=== PATIENT | female | born 1955 | race Caucasian/White ===

== ENCOUNTER 2018-05-17 16:25 | Outpatient (CLI) | payer OTHER ==
--- NOTE | 2018-05-18 08:39 | XRAY Report ---
Reason: BACK PAIN,LUMBAR,WITH RADICULOPATHY Procedure Date: 05/17/2018 Accession Number: [id number] / [id number] Procedure: XR - Lumbar Spine Complete CPT Code: FULL RESULT: EXAM: LUMBOSACRAL SPINE RADIOGRAPHY EXAM DATE: 05/17/2018 05:02 PM. CLINICAL HISTORY: Low back pain for 9 months with leg stiffness. COMPARISONS: No lumbar x-ray comparison. Abdomen x-ray 03/03/2014. CT abdomen and pelvis 03/03/2014. TECHNIQUE: 5 views. FINDINGS: Alignment: No scoliosis. Very mild anterolisthesis at L4-L5 appears increased. Very mild L2-L3 and minimal L3-L4 retrolisthesis is without ernestina change. Bones: Five ela-hbv-vxahdom lumbar vertebral bodies are present. Evidence of diffuse osteopenia, limiting some fine bony detail. No acute fractures or bone lesions. Mild anterior height loss of the L2 vertebral body and minimal height loss of the L1 vertebral body are without change. Disks: Djgi-ud-ukuajfgo L1-L2, mild L2-L3 and mild L3-L4 disk space narrowing are without significant change. Very mild multilevel vertebral body spurring. facets: L4-L5 and L5-S1 degenerative facet disease, increased. Sacroiliac Joints: Unremarkable. Soft Tissues: Aortic calcifications. The visualized bowel gas pattern is normal. IMPRESSION: 1. Osteopenia. 2. No definite acute abnormality. 3. Stable mild L2 and minimal L1 vertebral body height loss. 4. Degenerative disk disease, without significant change. 5. Very mild L4-L5 anterolisthesis, increased. 6. Very mild L2-L3 and minimal L3-L4 retrolisthesis, without significant change. 7. L4-L5 and L5-S1 degenerative facet disease, progressed. RADIA
== END 2018-05-17 16:26 | disposition home or self-care (01) ==
LOC: DI 16:25
PROVIDERS: ATTEND Physician Assistant Medical
DX: M51.16 Intervertebral disc disorders with radiculopathy, lumbar region (principal); M85.88 Other specified disorders of bone density and structure, other site
CPT/HCPCS: 72110

== ENCOUNTER 2018-08-20 16:10 | Outpatient (CLI) | payer OTHER ==
--- NOTE | 2018-08-21 10:51 | XRAY Report ---
Reason: HIP JOINT PAIN,LEFT Procedure Date: 08/20/2018 Accession Number: [id number] / [id number] Procedure: XR - Hip w/Pelvis 2-3V LT CPT Code: FULL RESULT: EXAM: LEFT HIP AND PELVIS RADIOGRAPHY EXAM DATE: 08/20/2018 04:21 PM. HISTORY: HIP JOINT PAIN,LEFT. COMPARISONS: None. TECHNIQUE: 1 view of the pelvis and 1 view of the hip. FINDINGS: Bones: Normal. No fracture or bone lesion. Joints: There is complete loss of joint space in the left hip joint medially. Moderate loss of hip joint space is also seen on the right medially. The pubis symphysis, and sacroiliac joints are preserved. Soft Tissues: Normal. No soft tissue swelling. IMPRESSION: Complete loss of joint space in left hip joint medially. RADIA
== END 2018-08-20 16:11 | disposition home or self-care (01) ==
LOC: DI 16:10
PROVIDERS: ATTEND Physician Assistant Medical
DX: M25.852 Other specified joint disorders, left hip (principal); M25.851 Other specified joint disorders, right hip

== ENCOUNTER 2018-09-12 11:15 | Outpatient (CLI) | payer OTHER ==
--- NOTE | 2018-09-12 20:57 | XRAY Report ---
Reason: TOBACCO DEPENDENCE, CONTINUOUS, PNEUMONIA Procedure Date: 09/11/2018 Accession Number: [id number] / [id number] Procedure: XR - Chest 2 View X-Ray CPT Code: 12062 FULL RESULT: EXAM: CHEST RADIOGRAPHY EXAM DATE: 09/12/2018 11:26 AM. CLINICAL HISTORY: TOBACCO DEPENDENCE, CONTINUOUS, PNEUMONIA. COMPARISON: XR CHEST PA AND LAT 05/21/2011 1:22 PM. TECHNIQUE: 2 views. FINDINGS: Lungs/Pleura: There is nodular and consolidative opacity within the right middle lobe. There is no evidence of significant pleural effusion. No pneumothorax. Mediastinum: Heart size is within normal limits. There is mild thoracic aortic tortuosity. Other: None. IMPRESSION: 1. There is nodular and consolidative opacity within the right middle lobe. This is suspicious for pneumonia. Interval follow-up film posttreatment recommended to demonstrate resolution of this process and to exclude underlying pathology. 2. There is no evidence of pneumothorax. RADIA
== END 2018-09-12 11:16 | disposition home or self-care (01) ==
LOC: DI 11:15
PROVIDERS: ATTEND Registered Nurse
DX: J11.00 Influenza due to unidentified influenza virus with unspecified type of pneumonia (principal); F17.200 Nicotine dependence, unspecified, uncomplicated
CPT/HCPCS: 71046

== ENCOUNTER 2018-09-14 10:39 | Inpatient (IN) | payer MEDICARE, OTHER ==
[2018-09-14] MEDS ORDERED: predniSONE 20 MG TABLET PO STA (12:18)
[2018-09-14] MEDS ORDERED: levoFLOXacin 250 MG TABLET PO STA (12:18)
[2018-09-14] MEDS ORDERED: ALBUTEROL NEB 2.5 MG/3 ML INH STA (12:18)
--- NOTE | 2018-09-14 12:22 | ED Physician Documentation ---
PD HPI DYSPNEA - Stated complaint Stated Complaint: DIFF BREATHING/WEAKNESS/COUGH - Chief complaint Chief Complaint: Resp - History obtained from History obtained from: Patient - History of Present Illness Timing - onset: Other (This is a long-standing 63-year-old smoker with no formal diagnosis of COPD etc. who saw her physician on Monday for a productive cough without other URI symptoms and was diagnosed with a right-sided pneumonia. She was put on doxycycline. 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: Yes Smoking Status: Current every day smoker Does the pt drink ETOH?: Yes Does the pt have substance abuse?: No - Immunizations Immunizations: TDAP >10years/unknown - POLST Patient has POLST: No PD ED PE NORMAL - Vitals Vital signs reviewed: Yes - General General: Alert and oriented X 3, No acute distress - HEENT HEENT: PERRL, EOMI - Neck Neck: Supple, no meningeal sign, No bony TTP - Cardiac Cardiac: RRR, No murmur - Respiratory Respiratory: No respiratory distress, Other (Very rhonchorous throughout especially on the right) - Abdomen Abdomen: Soft, Non tender - Extremities Extremities: No edema, No calf tenderness / cord - Neuro Neuro: Alert and oriented X 3, Normal speech Results - Vitals Vitals: Vital Signs - 24 hr 09/14/18 09/14/18 10:44 12:26 Temperature 36.1 C L Heart Rate 81 68 Respiratory 20 20 Rate Blood Pressure 131/60 H O2 Saturation 93 Oxygen O2 Source Room air PD MEDICAL DECISION MAKING - ED course ED course: This is a 63-year-old smoker with some physical exam findings concerning for COPD and a chest x-ray showing a right-sided pneumonia which is incompletely tr eated. Her vital signs are unremarkable. We will change her over to Levaquin and add steroids. However prior to discharge she became hypoxic to the mid-80s and required about 3lpm of O2 and I spoke with Dr Willis for admit at 1249pm Departure - Departure Disposition: 66 [facility] DC/Xfer Clinical Impression: Hypoxemia Pneumonia Qualifiers: Pneumonia type: due to unspecified organism Laterality: right Lung location: unspecified part of lung Qualified Code(s): J18.9 - Pneumonia, unspecified organism Condition: Serious Record reviewed to determine appropriate education?: Yes Instructions: ED Pneumonia Adult Prescriptions: Levofloxacin [Levaquin] 750 mg PO DAILY #7 tablet predniSONE [Deltasone] 20 mg PO [id number] #21 tab Comments: FOLLOWUP WITH YOUR DOCTOR MONDAY FOR RECHECK. RETURN IF WORSE.
[2018-09-14] MEDS ORDERED: IPRATROPIUM/ALBUTEROL 3 ML NEB INH STA (12:44)
[2018-09-14] MEDS ORDERED: ZOLPIDEM 5 MG TABLET PO PRN (13:02)
[2018-09-14] MEDS ORDERED: ONDANSETRON 4 MG/2 ML VIAL IVP PRN (13:02)
[2018-09-14] MEDS ORDERED: PROCHLORPERAZINE 10 MG/2 ML VIAL IVP PRN (13:02)
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
[2018-09-14 13:20] LABS: BASOPHILS # (AUTO) 0.1 10^3/uL (0.0-0.1); BASOPHILS % (AUTO) 0.7 %; EOSINOPHILS # (AUTO) 0.1 10^3/uL (0.0-0.7); EOSINOPHILS % (AUTO) 1.3 %; HGB - HEMOGLOBIN 13.9 g/dL (12.0-16.0); LYMPHOCYTES # (AUTO) 2.6 10^3/uL (1.5-3.5); LYMPHOCYTES % (AUTO) 26.5 %; MEAN CORPUSCULAR HGB CONC 34.5 g/dL (32.0-36.0); MEAN CORPUSCULAR VOLUME 92.7 fL (81.0-99.0); MEAN PLATELET VOLUME 7.9 fL (7.9-10.8); MONOCYTES # (AUTO) 1.2 10^3/uL (0.0-1.0); NEUTROPHILS # (AUTO) 5.8 10^3/uL (1.5-6.6); NEUTROPHILS % (AUTO) 59.5 %; PLT - PLATELET COUNT 269 10^3/uL (130-450); RED BLOOD COUNT 4.35 10^6/uL (4.20-5.40); RED CELL DISTRIBUTION WIDTH 13.3 % (12.0-15.0); WHITE BLOOD COUNT 9.8 x10^3/uL (4.8-10.8)
[2018-09-14] MEDS ORDERED: IOVERSOL 320 100 ML VIAL IVP ONE ×2 (13:26→14:07)
[2018-09-14 13:34] LABS: ALBUMIN 3.4 g/dL (3.2-5.5); ALBUMIN/GLOBULIN RATIO 0.8 (1.0-2.2); BILIRUBIN,TOTAL 0.6 mg/dL (0.2-1.0); CALCIUM 8.8 mg/dL (8.5-10.3); CREATININE 0.8 mg/dL (0.4-1.0); TOTAL PROTEIN 7.9 g/dL (6.7-8.2)
[2018-09-14 13:36] LABS: INR 1.4 (0.8-1.2); PT - PROTHROMBIN TIME 15.4 secs (9.9-12.6)
[2018-09-14] MEDS ORDERED: POTASSIUM CHLORIDE 20 MEQ TABLET PO SCH (13:55)
[2018-09-14] MEDS ORDERED: SODIUM CHLORIDE 0.9% 1,000 ML IV SCH (14:00)
--- NOTE | 2018-09-14 14:40 | CT Report ---
Reason: Acute respiratory failure with hypoxia Procedure Date: 09/14/2018 Accession Number: [id number] / [id number] Procedure: CT - Chest Angio (PE) CPT Code: FULL RESULT: EXAM: CT ANGIOGRAM CHEST EXAM DATE: 09/14/2018 02:05 PM. CLINICAL HISTORY: Acute respiratory failure with hypoxia. COMPARISON: CHEST 2 VIEW 09/12/2018 11:26 AM. TECHNIQUE: Routine helical imaging was performed through the chest in the pulmonary arterial phase. IV Contrast: 80 ML OPTIRAY 320. Reconstructions: Coronal 3-D MIP reconstructions.Sagittal and coronal. In accordance with CT protocol optimization, one or more of the following dose reduction techniques were utilized for this exam: automated exposure control, adjustment of mA and/or KV based on patient size, or use of iterative reconstructive technique. FINDINGS: Pulmonary Arteries: Main pulmonary segment is normal in caliber. Diagnostic quality: Adequate through the segmental arteries. No evidence for acute or chronic pulmonary emboli. RV/LV is within normal limits. There is no interventricular septal bowing. There is no reflux of contrast material in the IVC. Lungs/Pleura: There is peripheral paraseptal emphysema bilaterally greatest in the apices and sparing the anterior inferior lungs. There is multifocal peripheral patchy and confluent airspace consolidation, in association with an element of volume loss in the inferior aspects of the right upper, middle and lower lobes. There is asymmetric bronchial thickening with small amounts of intrabronchial material noted to be supplying bronchi. No effusion or extra-ventilatory air. Mediastinum: Normal. No cardiac enlargement or adenopathy. Mild asymmetric low density right hilar lymph nodes noted not significantly enlarged. Thoracic Aorta: Unremarkable. Upper Abdomen: Unremarkable. Other: None. IMPRESSION: 1. No evidence of acute pulmonary embolism. 2. Multifocal right lung airspace opacity as described favoring sequela of aspiration event. Correlate with an appropriate clinical history. If no supporting history, multifocal infiltrate would be favored. 3. Paraseptal emphysema. RADIA
[2018-09-14] MEDS: NS W/20 MEQ KCL 1,000 ML IV SCH ×2 (14:57→23:55)
[2018-09-14] MEDS: AZITHROMYCIN INJ 500 MG in SODIUM CHLORIDE 0.9% 250 ML IV SCH (14:58)
[2018-09-14] MEDS: IPRATROPIUM/ALBUTEROL 3 ML NEB INH SCH ×2 (15:40→23:27)
[2018-09-14] MEDS: cefTRIAXone 2 GM in SODIUM CHLORIDE 0.9% MINIBAG 100 ML IV SCH (16:49)
[2018-09-14] MEDS: SACCHAROMYCES BOULARDII 250 MG CAPSULE PO SCH (17:33)
[2018-09-14] MEDS: SODIUM CHLORIDE FLUSH 0.9% 10 ML SYRINGE IVP SCH ×2 (17:34→23:55)
[2018-09-14] MEDS: methylPREDNISolone SUCCINATE 40 MG/ML VIAL IVP SCH ×2 (17:36→23:55)
[2018-09-14] MEDS: FAMOTIDINE 20 MG TABLET PO SCH (20:03)
[2018-09-14] MEDS: IBUPROFEN 600 MG TABLET PO PRN (20:43)
[2018-09-14] MEDS: IPRATROPIUM/ALBUTEROL 3 ML NEB INH PRN (23:23)
[2018-09-15 05:32] LABS: BASOPHILS % (AUTO) 0.1 %; HGB - HEMOGLOBIN 11.9 g/dL (12.0-16.0); LYMPHOCYTES # (AUTO) 0.9 10^3/uL (1.5-3.5); LYMPHOCYTES % (AUTO) 11.5 %; MEAN CORPUSCULAR HEMOGLOBIN 32.1 pg (27.0-31.0); MEAN CORPUSCULAR VOLUME 94.5 fL (81.0-99.0); MEAN PLATELET VOLUME 8.1 fL (7.9-10.8); MONOCYTES # (AUTO) 0.2 10^3/uL (0.0-1.0); MONOCYTES % (AUTO) 2.8 %; NEUTROPHILS # (AUTO) 6.4 10^3/uL (1.5-6.6); NEUTROPHILS % (AUTO) 85.6 %; PLT - PLATELET COUNT 237 10^3/uL (130-450); RED BLOOD COUNT 3.71 10^6/uL (4.20-5.40); RED CELL DISTRIBUTION WIDTH 13.3 % (12.0-15.0); WHITE BLOOD COUNT 7.5 x10^3/uL (4.8-10.8)
[2018-09-15] MEDS: methylPREDNISolone SUCCINATE 40 MG/ML VIAL IVP SCH ×3 (05:41→19:00)
[2018-09-15] MEDS: SODIUM CHLORIDE FLUSH 0.9% 10 ML SYRINGE IVP PRN (05:41)
[2018-09-15 05:48] LABS: ALBUMIN 2.7 g/dL (3.2-5.5); ALBUMIN/GLOBULIN RATIO 0.7 (1.0-2.2); BILIRUBIN,TOTAL 0.3 mg/dL (0.2-1.0); CALCIUM 8.3 mg/dL (8.5-10.3); CREATININE 0.5 mg/dL (0.4-1.0); MAGNESIUM 2.4 mg/dL (1.7-2.8); PHOSPHORUS 4.4 mg/dL (2.5-4.6); TOTAL PROTEIN 6.5 g/dL (6.7-8.2)
[2018-09-15] MEDS: IPRATROPIUM/ALBUTEROL 3 ML NEB INH SCH ×2 (05:53→11:54)
[2018-09-15 06:14] LABS: INR 1.4 (0.8-1.2); PT - PROTHROMBIN TIME 16.2 secs (9.9-12.6)
--- NOTE | 2018-09-15 07:37 | PROVIDER PROGRESS NOTE ---
Assessment/Plan - Problem List (1) Acute respiratory failure with hypoxia Assessment/Plan: Down to 3L O2 requirement no O2 at baseline Improving Still coughing Continue IV abx, nebs and steroids Wean O2 Transfer to Med surg (2) Multifocal pneumonia Conclusion/Plan: Improving but still requiring 3L of O2 with coughing Continue vancomycin and zosyn day 2 Duo nebs IV steroids Supplemental oxygen Repeat chest x-ray tomorrow (3) COPD exacerbation Conclusion/Plan: Patient is a longtime smoker and on her CT angiography of the thorax the patient appears to have emphysema. The patient also has wheezing on examination. Shane arauz appears to have COPD exacerbation secondary to multifocal pneumonia. Improving slowly Plan: Continue Duo nebs prn IV Solu-Medrol every 6 hours Supplemental oxygen (4) Tobacco abuse Conclusion/Plan: Patient counselled and offered nicotine patch (5) Hypokalemia Conclusion/Plan: Resolved - Current Meds Current Meds: Current Medications Generic Name Dose Route Start Last Admin Trade Name Freq PRN Reason Stop Dose Admin Albuterol/Ipratropium 3 ml 09/14/18 13:02 09/14/18 23:23 Duoneb INH 3 ml RTQID PRN Administration Wheezing Albuterol/Ipratropium 3 ml 09/14/18 15:00 09/15/18 05:53 Duoneb INH 09/15/18 14:59 3 ml RTQID JACQUELINE Administration Famotidine 20 mg 09/14/18 21:00 09/14/18 20:03 Pepcid PO 20 mg BID JACQUELINE Administration Azithromycin 500 mg/ Sodium 250 mls @ 250 mls/hr 09/14/18 14:00 09/14/18 16:00 Chloride IV Infused Q24H JACQUELINE Infusion Ceftriaxone Sodium 2 gm/ 100 mls @ 200 mls/hr 09/14/18 16:00 09/14/18 17:20 Sodium Chloride IV Infused Q24H JACQUELINE Infusion Potassium Chloride/Sodium Chloride 1,000 mls @ 125 mls/hr 09/14/18 15:00 09/15/18 07:00 Normal Saline 0.9% W/20 Meq Kcl IV 125 mls/hr .Q8H JACQUELINE Infusion Ibuprofen 600 mg 09/14/18 13:02 09/14/18 20:43 Motrin PO 600 mg Q6HR PRN Administration Pain 1 to 4 Methylprednisolone 40 mg 09/14/18 18:00 09/15/18 05:41 Solu-Medrol (40mg Vial) IVP 40 mg Q6HR JACQUELINE Administration Saccharomyces Boulardii 250 mg 09/14/18 17:00 09/14/18 17:33 Florastor PO 250 mg BIDWM JACQUELINE Administration Sodium Chloride 10 ml 09/14/18 13:02 09/15/18 05:41 Normal Saline Flush 0.9% IVP 10 ml PRN PRN Administration NEEDED PER PROVIDER ORDERS Sodium Chloride 10 ml 09/14/18 17:00 09/14/18 23:55 Normal Saline Flush 0.9% IVP 10 ml 0100,0900,1700 JACQUELINE Administration - Lab Result Lab results reviewed: Yes Fish Bone Diagrams: 09/15/18 05:18 09/15/18 05:18 - Diagnostic Imaging Results Diagnostic Imaging Results: Final report reviewed - Additional Planning Condition/Complexity: Guarded My Orders: My Active Orders 09/14/18 13:02 Activity Orders [RC] Routine IO [RC] IOSHIFT Initiate Bowel Care Protocol [RC] .protocol Initiate Flu Vaccine Screening [RC] ONCE Initiate Line Care Protocol [RC] QSHIFT Initiate Personal Care Protoco [RC] .protocol Initiate Pneumonia Vaccine Scr [RC] ONCE Oxygen Therapy [RC] Routine Acetaminophen [Tylenol] 650 mg PO Q4HR PRN Ibuprofen [Motrin] 600 mg PO Q6HR PRN Ipratropium/Albuterol [Duoneb] 3 ml INH RTQID PRN Ondansetron Inj [Zofran Inj] 4 mg IVP Q6HR PRN Prochlorperazine Inj [Compazine Inj] 10 mg IVP Q6HR PRN Sodium Chloride Flush 0.9% [Normal Saline Flush 0.9%] 10 ml IVP PRN PRN Zolpidem [Ambien] 5 mg PO QPM PRN Code Status [OTHERS] Routine Condition of Patient [OTHERS] Routine DVT Prophylaxis [OTHERS] Routine 09/14/18 13:14 Daily Weight [RC] 0600 IO [RC] Q1HR Initiate ICU Electrolyte Prot. [RC] .protocol Vital Signs [RC] Q1HR Code Status [OTHERS] Routine 09/14/18 13:15 Telemetry- [RC] Routine 09/14/18 14:00 Azithromycin Inj [Zithromax Inj] 500 mg Sodium Chloride 0.9% [Normal Saline 0.9%] 250 ml IV Q24H 09/14/18 15:00 Ipratropium/Albuterol [Duoneb] 3 ml INH RTQID Ns W/20 Meq KCl [Normal Saline 0.9% W/20 Meq KCl] 1,000 ml IV 125 mls/hr 09/14/18 15:46 RT [Nebulizer/MDI Tx.] [RC] .qid&prn 09/14/18 16:00 cefTRIAXone [Rocephin] 2 gm Sodium Chloride 0.9% Minibag [Normal Saline 0.9% Minibag] 100 ml IV Q24H 09/14/18 17:00 Saccharomyces Boulardii [Florastor] 250 mg PO BIDWM Sodium Chloride Flush 0.9% [Normal Saline Flush 0.9%] 10 ml IVP 0100,0900,1700 09/14/18 18:00 methylPREDNISolone SUCCINATE [SOLU-Medrol (40MG VIAL)] 40 mg IVP Q6HR 09/14/18 21:00 Famotidine [Pepcid] 20 mg PO BID 09/14/18 Dinner Regular Diet [DIET] 09/15/18 08:00 predniSONE [Deltasone] 40 mg PO DAILYWM 09/15/18 09:00 Enoxaparin [Lovenox] 40 mg SUBQ DAILY Polyethylene Glycol 3350 [Miralax] 17 gm PO DAILY 09/16/18 05:00 CBC - COMP BLD CT W/AUTO DIFF [HEME] DAILYLAB COMPREHENSIVE METABOLIC PANEL [CHEM] DAILYLAB MAGNESIUM [CHEM] DAILYLAB PHOSPHORUS [CHEM] DAILYLAB 09/17/18 05:00 CBC - COMP BLD CT W/AUTO DIFF [HEME] DAILYLAB COMPREHENSIVE METABOLIC PANEL [CHEM] DAILYLAB MAGNESIUM [CHEM] DAILYLAB PHOSPHORUS [CHEM] DAILYLAB Plan Discussed with:: Patient Time Spent: 31-60 minutes Subjective - Subjective Patient Reports: Feeling Better, Cough (Slightly better), Shortness of Breath (I mproving), Other (No fevers or chills) Nursing Reports: No Complaints Objective Vital Signs: Vital Signs - 24 hr 09/14/18 09/14/18 09/14/18 10:44 12:26 15:00 Temperature 36.1 C L Heart Rate 81 68 Heart Rate [ 78 Monitoring electrodes] Respiratory 20 20 18 Rate Blood Pressure 131/60 H Blood Pressure 106/72 [Right Brachial artery] O2 Saturation 93 99 09/14/18 09/14/18 09/14/18 15:47 16:00 19:00 Temperature Heart Rate 82 Heart Rate [ 84 73 Monitoring electrodes] Respiratory 20 12 18 Rate Blood Pressure Blood Pressure 116/64 110/61 [Right Brachial artery] O2 Saturation 93 96 09/14/18 09/14/18 09/14/18 19:29 20:00 21:00 Temperature 36.5 C Heart Rate Heart Rate [ 87 71 77 Monitoring electrodes] Respiratory 23 18 25 H Rate Blood Pressure Blood Pressure 110/61 104/67 104/59 L [Right Brachial artery] O2 Saturation 93 96 94 09/14/18 09/14/18 09/14/18 22:00 23:00 23:23 Temperature 36.8 C Heart Rate 64 Heart Rate [ 69 64 Monitoring electrodes] Respiratory 19 22 16 Rate Blood Pressure Blood Pressure 97/56 L 101/56 L [Right Brachial artery] O2 Saturation 95 95 09/14/18 09/15/18 09/15/18 23:31 00:01 01:00 Temperature Heart Rate Heart Rate [ 77 77 Monitoring electrodes] Respiratory 20 22 Rate Blood Pressure Blood Pressure 94/54 L 94/50 L [Right Brachial artery] O2 Saturation 100 92 93 09/15/18 09/15/18 09/15/18 02:00 03:00 04:00 Temperature Heart Rate Heart Rate [ 68 72 57 L Monitoring electrodes] Respiratory 24 23 24 Rate Blood Pressure Blood Pressure 87/53 L 96/55 L 92/53 L [Right Brachial artery] O2 Saturation 93 96 94 09/15/18 09/15/18 09/15/18 05:00 05:54 06:00 Temperature 36.6 C Heart Rate 50 L Heart Rate [ 51 L 54 L Monitoring electrodes] Respiratory 23 14 19 Rate Blood Pressure Blood Pressure 97/54 L 97/50 L [Right Brachial artery] O2 Saturation 97 98 09/15/18 07:00 Temperature Heart Rate Heart Rate [ 59 L Monitoring electrodes] Respiratory 23 Rate Blood Pressure Blood Pressure 109/55 L [Right Brachial artery] O2 Saturation 94 Oxygen O2 Source Nasal cannula Oxygen Flow Rate 2 I&O (Last 24 Hrs): Intake and Output Totals x24h 09/13/18 09/14/1818 23:59 23:59 23:59 Intake Total 1790.00 1385.417 Output Total 700 200 Balance 1090.00 1185.417 General: Alert, Oriented x3, Cooperative, Mild distress (Respiratory) HEENT: Atraumatic, PERRLA, EOMI, Mucous membr. moist/pink Neck: Supple, No JVD, No thyromegaly, +2 carotid pulse wo bruit, No LAD Lymphatic: no adenopathy Neuro: Alert, Non Focal, CN 2-12 Grossly Intact, Oriented Times 3 Cardiovascular: Regular rate, Normal S1, Normal S2, No murmurs Respiratory: Chest non-tender, Wheezes (Bilateral, expiratory), Rhonchi (Right lung throughout but worse in the lower lung) Abdomen: Normal bowel sounds, Soft, No tenderness, No hepatospenomegaly Extremities: No clubbing, No cyanosis, No edema, Normal pulses Skin: No rashes, No breakdown - Results Results: Laboratory Results WBC 7.5 x10^3/uL (4.8-10.8) 09/15/18 05:18 RBC 3.71 10^6/uL (4.20-5.40) L 09/15/18 05:18 Hgb 11.9 g/dL (12.0-16.0) L 09/15/18 05:18 Hct 35.1 % (37.0-47.0) L 09/15/18 05:18 MCV 94.5 fL (81.0-99.0) 09/15/18 05:18 MCH 32.1 pg (27.0-31.0) H 09/15/18 05:18 MCHC 34.0 g/dL (32.0-36.0) 09/15/18 05:18 RDW 13.3 % (12.0-15.0) 09/15/18 05:18 Plt Count 237 10^3/uL (130-450) 09/15/18 05:18 MPV 8.1 fL (7.9-10.8) 09/15/18 05:18 Neut # (Auto) 6.4 10^3/uL (1.5-6.6) 09/15/18 05:18 Lymph # (Auto) 0.9 10^3/uL (1.5-3.5) L 09/15/18 05:18 [place] # (Auto) 0.2 10^3/uL (0.0-1.0) 09/15/18 05:18 Eos # (Auto) 0.0 10^3/uL (0.0-0.7) 09/15/18 05:18 Baso # (Auto) 0.0 10^3/uL (0.0-0.1) 09/15/18 05:18 Absolute Nucleated RBC 0.00 x10^3/uL 09/15/18 05:18 Nucleated RBC % 0.0 /100WBC 09/15/18 05:18 PT 16.2 secs (9.9-12.6) H 09/15/18 05:18 INR 1.4 (0.8-1.2) H 09/15/18 05:18 D-Dimer 506.7 ng/mL (200.0-255.0) H 09/14/18 12:55 Sodium 138 mmol/L (135-145) 09/15/18 05:18 Potassium 4.6 mmol/L (3.5-5.0) 09/15/18 05:18 Chloride 108 mmol/L (101-111) 09/15/18 05:18 Carbon Dioxide 23 mmol/L (21-32) 09/15/18 05:18 Anion Gap 7.0 (6-13) 09/15/18 05:18 BUN 18 mg/dL (6-20) 09/15/18 05:18 Creatinine 0.5 mg/dL (0.4-1.0) 09/15/18 05:18 Estimated GFR (MDRD) 124 (>89) 09/15/18 05:18 Glucose 188 mg/dL (70-100) H 09/15/18 05:18 Lactic Acid 1.0 mmol/L (0.5-2.2) 09/14/18 13:11 Calcium 8.3 mg/dL (8.5-10.3) L 09/15/18 05:18 Phosphorus 4.4 mg/dL (2.5-4.6) 09/15/18 05:18 Magnesium 2.4 mg/dL (1.7-2.8) 09/15/18 05:18 Total Bilirubin 0.3 mg/dL (0.2-1.0) 09/15/18 05:18 AST 15 IU/L (10-42) 09/15/18 05:18 ALT 31 IU/L (10-60) 09/15/18 05:18 Alkaline Phosphatase 74 IU/L (42-121) 09/15/18 05:18 Troponin I < 0.04 ng/mL (<0.49) 09/15/18 00:59 Total Protein 6.5 g/dL (6.7-8.2) L 09/15/18 05:18 Albumin 2.7 g/dL (3.2-5.5) L 09/15/18 05:18 Globulin 3.8 g/dL (2.1-4.2) 09/15/18 05:18 Albumin/Globulin Ratio 0.7 (1.0-2.2) L 09/15/18 05:18 Lipase 23 U/L (22-51) 09/14/18 13:11 Influenza A (Rapid) Negative (Negative) 09/14/18 16:00 Influenza B (Rapid) Negative (Negative) 09/14/18 16:00 - Procedures Procedures: Procedures EXCISION OF ASCENDING COLON, ENDO, DIAGN (06/02/16) ABX Reporting Has patient been on IV antibiotics over the past 48 hours?: No Current Medications - Current Medications Current Medications: Active Medications Generic Name Dose Route Start Last Admin Trade Name Freq PRN Reason Stop Dose Admin Acetaminophen 650 mg 09/14/18 13:02 Tylenol PO Q4HR PRN Pain 1 to 4 Albuterol/Ipratropium 3 ml 09/14/18 13:02 09/14/18 23:23 Duoneb INH 3 ml RTQID PRN Administration Wheezing Albuterol/Ipratropium 3 ml 09/14/18 15:00 09/15/18 05:53 Duoneb INH 09/15/18 14:59 3 ml RTQID JACQUELINE Administration Enoxaparin Sodium 40 mg 09/15/18 09:00 Lovenox SUBQ DAILY JACQUELINE Famotidine 20 mg 09/14/18 21:00 09/14/18 20:03 Pepcid PO 20 mg BID JACQUELINE Administration Azithromycin 500 mg/ Sodium 250 mls @ 250 mls/hr 09/14/18 14:00 09/14/18 16:00 Chloride IV Infused Q24H JACQUELINE Infusion Ceftriaxone Sodium 2 gm/ 100 mls @ 200 mls/hr 09/14/18 16:00 09/14/18 17:20 Sodium Chloride IV Infused Q24H JACQUELINE Infusion Potassium Chloride/Sodium Chloride 1,000 mls @ 125 mls/hr 09/14/18 15:00 09/15/18 07:00 Normal Saline 0.9% W/20 Meq Kcl IV 125 mls/hr .Q8H JACQUELINE Infusion Ibuprofen 600 mg 09/14/18 13:02 09/14/18 20:43 Motrin PO 600 mg Q6HR PRN Administration Pain 1 to 4 Methylprednisolone 40 mg 09/14/18 18:00 09/15/18 05:41 Solu-Medrol (40mg Vial) IVP 40 mg Q6HR JACQUELINE Administration Ondansetron HCl 4 mg 09/14/18 13:02 Zofran Inj IVP Q6HR PRN Nausea / Vomiting Polyethylene Glycol 17 gm 09/15/18 09:00 Miralax PO DAILY JACQUELINE Prednisone 40 mg 09/15/18 08:00 Deltasone PO DAILYWM JACQUELINE Prochlorperazine Edisylate 10 mg 09/14/18 13:02 Compazine Inj IVP Q6HR PRN Nausea / Vomiting Saccharomyces Boulardii 250 mg 09/14/18 17:00 09/14/18 17:33 Florastor PO 250 mg BIDWM JACQUELINE Administration Sodium Chloride 10 ml 09/14/18 13:02 09/15/18 05:41 Normal Saline Flush 0.9% IVP 10 ml PRN PRN Administration NEEDED PER PROVIDER ORDERS Sodium Chloride 10 ml 09/14/18 17:00 09/14/18 23:55 Normal Saline Flush 0.9% IVP 10 ml 0100,0900,1700 JACQUELINE Administration Zolpidem Tartrate 5 mg 09/14/18 13:02 Ambien PO QPM PRN Insomnia Albuterol Sulfate [Proair Hfa Inhaler] 2 puffs INH Q4H PRN 09/14/18 Meloxicam 15 mg PO DAILY PRN 09/14/18
[2018-09-15] MEDS ORDERED: predniSONE 20 MG TABLET PO SCH (08:00)
[2018-09-15] MEDS: NS W/20 MEQ KCL 1,000 ML IV SCH ×3 (08:02→19:01)
[2018-09-15] MEDS: SODIUM CHLORIDE FLUSH 0.9% 10 ML SYRINGE IVP SCH ×2 (08:02→19:26)
[2018-09-15] MEDS: FAMOTIDINE 20 MG TABLET PO SCH ×2 (09:30→20:18)
[2018-09-15] MEDS: SACCHAROMYCES BOULARDII 250 MG CAPSULE PO SCH ×2 (09:30→19:01)
[2018-09-15] MEDS: POLYETHYLENE GLYCOL 3350 17 GM PACKET PO SCH (09:32)
[2018-09-15] MEDS: ENOXAPARIN 40 MG/0.4 ML SYRINGE SUBQ SCH (09:32)
[2018-09-15] MEDS: IBUPROFEN 600 MG TABLET PO PRN (12:16)
[2018-09-15] MEDS: AZITHROMYCIN INJ 500 MG in SODIUM CHLORIDE 0.9% 250 ML IV SCH (14:33)
[2018-09-15] MEDS: IPRATROPIUM/ALBUTEROL 3 ML NEB INH PRN (15:28)
[2018-09-15] MEDS ORDERED: SODIUM CHLORIDE 0.9% 1,000 ML IV ONE (15:57)
[2018-09-15] MEDS: cefTRIAXone 2 GM in SODIUM CHLORIDE 0.9% MINIBAG 100 ML IV SCH (17:34)
[2018-09-16] MEDS: IPRATROPIUM/ALBUTEROL 3 ML NEB INH PRN ×2 (00:54→18:00)
[2018-09-16] MEDS: methylPREDNISolone SUCCINATE 40 MG/ML VIAL IVP SCH ×4 (01:14→18:32)
[2018-09-16] MEDS: NS W/20 MEQ KCL 1,000 ML IV SCH (02:58)
[2018-09-16] MEDS: IBUPROFEN 600 MG TABLET PO PRN (03:00)
[2018-09-16] MEDS: SODIUM CHLORIDE FLUSH 0.9% 10 ML SYRINGE IVP SCH ×3 (03:28→18:32)
[2018-09-16 06:16] LABS: BASOPHILS % (AUTO) 0.2 %; HGB - HEMOGLOBIN 11.4 g/dL (12.0-16.0); LYMPHOCYTES # (AUTO) 1.5 10^3/uL (1.5-3.5); LYMPHOCYTES % (AUTO) 7.7 %; MEAN CORPUSCULAR HEMOGLOBIN 31.3 pg (27.0-31.0); MEAN CORPUSCULAR HGB CONC 32.8 g/dL (32.0-36.0); MEAN CORPUSCULAR VOLUME 95.6 fL (81.0-99.0); MONOCYTES # (AUTO) 0.6 10^3/uL (0.0-1.0); MONOCYTES % (AUTO) 3.1 %; PLT - PLATELET COUNT 256 10^3/uL (130-450); RED BLOOD COUNT 3.64 10^6/uL (4.20-5.40); RED CELL DISTRIBUTION WIDTH 13.5 % (12.0-15.0); WHITE BLOOD COUNT 19.1 x10^3/uL (4.8-10.8)
[2018-09-16 06:29] LABS: ALBUMIN 2.7 g/dL (3.2-5.5); ALBUMIN/GLOBULIN RATIO 0.8 (1.0-2.2); BILIRUBIN,TOTAL 0.2 mg/dL (0.2-1.0); CALCIUM 8.5 mg/dL (8.5-10.3); CREATININE 0.6 mg/dL (0.4-1.0); MAGNESIUM 2.2 mg/dL (1.7-2.8); PHOSPHORUS 3.3 mg/dL (2.5-4.6); TOTAL PROTEIN 6.1 g/dL (6.7-8.2)
[2018-09-16] MEDS: BENZONATATE 100 MG CAPSULE PO PRN ×2 (09:27→19:44)
[2018-09-16] MEDS: SACCHAROMYCES BOULARDII 250 MG CAPSULE PO SCH ×2 (09:27→17:17)
[2018-09-16] MEDS: guaiFENesin/CODEINE 5 ML UDC PO PRN ×3 (09:27→22:00)
[2018-09-16] MEDS: ENOXAPARIN 40 MG/0.4 ML SYRINGE SUBQ SCH (09:27)
[2018-09-16] MEDS: FAMOTIDINE 20 MG TABLET PO SCH ×2 (09:27→20:20)
[2018-09-16] MEDS: POLYETHYLENE GLYCOL 3350 17 GM PACKET PO SCH (09:28)
--- NOTE | 2018-09-16 09:56 | XRAY Report ---
Reason: Multifocal pneumonia Procedure Date: 09/16/2018 Accession Number: [id number] / [id number] Procedure: XR - Chest 2 View X-Ray CPT Code: 45550 FULL RESULT: EXAM: CHEST RADIOGRAPHY EXAM DATE: 09/16/2018 08:23 AM. CLINICAL HISTORY: Multifocal pneumonia. COMPARISON: CHEST 2 VIEW 09/12/2018 11:26 AM CHEST ANGIO 09/14/2018 1:41 PM. TECHNIQUE: 2 views. FINDINGS: Lungs/Pleura: There is similar patchy opacity in the right middle lobe. There is increased linear and patchy opacity at the base of the left lower lobe with slight elevation of the left hemidiaphragm. There are probable small bilateral pleural effusions. No pneumothorax. Mediastinum: Heart and mediastinal contours are unremarkable. There is minimal atherosclerotic calcification of the aortic arch. Other: No acute osseous abnormality. IMPRESSION: 1. Similar mild patchy opacity in the right middle lobe suspicious for pneumonia. 2. Increased streaky and patchy opacity at the base of the left lower lobe, which may be due to multifocal pneumonia or atelectasis. 3. Probable small bilateral pleural effusions. RADIA
[2018-09-16] MEDS: SODIUM CHLORIDE FLUSH 0.9% 10 ML SYRINGE IVP PRN ×2 (12:35→14:41)
[2018-09-16] MEDS: AZITHROMYCIN INJ 500 MG in SODIUM CHLORIDE 0.9% 250 ML IV SCH (14:40)
[2018-09-16] MEDS: cefTRIAXone 2 GM in SODIUM CHLORIDE 0.9% MINIBAG 100 ML IV SCH (16:06)
[2018-09-16] MEDS: ACETAMINOPHEN 325 MG TABLET PO PRN (22:01)
[2018-09-17] MEDS: methylPREDNISolone SUCCINATE 40 MG/ML VIAL IVP SCH ×3 (00:48→12:20)
[2018-09-17] MEDS: SODIUM CHLORIDE FLUSH 0.9% 10 ML SYRINGE IVP SCH ×4 (01:18→20:44)
[2018-09-17] MEDS: guaiFENesin/CODEINE 5 ML UDC PO PRN ×4 (04:02→22:28)
[2018-09-17] MEDS: BENZONATATE 100 MG CAPSULE PO PRN ×3 (04:02→22:28)
[2018-09-17] MEDS: SODIUM CHLORIDE FLUSH 0.9% 10 ML SYRINGE IVP PRN ×3 (06:26→13:55)
[2018-09-17 06:39] LABS: BASOPHILS % (AUTO) 0.1 %; HGB - HEMOGLOBIN 11.2 g/dL (12.0-16.0); LYMPHOCYTES # (AUTO) 1.5 10^3/uL (1.5-3.5); LYMPHOCYTES % (AUTO) 10.7 %; MEAN CORPUSCULAR HEMOGLOBIN 31.3 pg (27.0-31.0); MEAN CORPUSCULAR HGB CONC 32.3 g/dL (32.0-36.0); MEAN CORPUSCULAR VOLUME 96.8 fL (81.0-99.0); MEAN PLATELET VOLUME 8.3 fL (7.9-10.8); MONOCYTES # (AUTO) 0.4 10^3/uL (0.0-1.0); MONOCYTES % (AUTO) 2.6 %; NEUTROPHILS # (AUTO) 12.3 10^3/uL (1.5-6.6); NEUTROPHILS % (AUTO) 86.6 %; PLT - PLATELET COUNT 248 10^3/uL (130-450); RED BLOOD COUNT 3.58 10^6/uL (4.20-5.40); WHITE BLOOD COUNT 14.2 x10^3/uL (4.8-10.8)
[2018-09-17 06:49] LABS: ALBUMIN 2.7 g/dL (3.2-5.5); ALBUMIN/GLOBULIN RATIO 0.8 (1.0-2.2); ALKALINE PHOSPHATASE 61 IU/L (42-121); ALT ALANINE AMINOTRANSFERASE 34 IU/L (10-60); AST ASPARTATE AMINOTRANSFERASE 19 IU/L (10-42); BILIRUBIN,TOTAL < 0.2 mg/dL (0.2-1.0); BUN - BLOOD UREA NITROGEN 19 mg/dL (6-20); CALCIUM 8.4 mg/dL (8.5-10.3); CARBON DIOXIDE - CO2 24 mmol/L (21-32); CHLORIDE 108 mmol/L (101-111); CREATININE 0.7 mg/dL (0.4-1.0); GFR - MDRD 84 (>89); GLUCOSE 165 mg/dL (70-100); MAGNESIUM 2.3 mg/dL (1.7-2.8); PHOSPHORUS 4.5 mg/dL (2.5-4.6); SODIUM 139 mmol/L (135-145); TOTAL PROTEIN 5.9 g/dL (6.7-8.2)
[2018-09-17] MEDS: SACCHAROMYCES BOULARDII 250 MG CAPSULE PO SCH ×2 (08:27→16:19)
[2018-09-17] MEDS: FAMOTIDINE 20 MG TABLET PO SCH ×2 (08:27→20:42)
[2018-09-17] MEDS: ENOXAPARIN 40 MG/0.4 ML SYRINGE SUBQ SCH (08:28)
[2018-09-17] MEDS: POLYETHYLENE GLYCOL 3350 17 GM PACKET PO SCH (08:28)
--- NOTE | 2018-09-17 08:50 | PROVIDER PROGRESS NOTE ---
Assessment/Plan - Problem List (1) Acute respiratory failure with hypoxia Assessment/Plan: On 3L O2 no O2 at baseline Had a bad night where she was coughing all night Does not feel well this am Continue IV abx, nebs and steroids Wean O2 Patient may need home O2 Will likely need 1-2 more day of IV abx prior to discharge (2) Multifocal pneumonia Conclusion/Plan: Still requiring 3L of O2 Continue vancomycin and zosyn day 3 Duo nebs IV steroids Supplemental oxygen Repeat chest x-ray looks worse Increased WBC Worse today Will continue current treatment Start cough suppressant (3) COPD exacerbation Conclusion/Plan: Patient is a longtime smoker and on her CT angiography of the thorax the patient appears to have emphysema. The patient also has wheezing on examination. Patient appears to have COPD exacerbation secondary to multifocal pneumonia. Worse today Plan: Continue Duo nebs prn IV Solu-Medrol every 6 hours Supplemental oxygen (4) Tobacco abuse Conclusion/Plan: Patient counselled and offered nicotine patch (5) Hypokalemia Conclusion/Plan: Resolved - Current Meds Current Meds: Current Medications Generic Name Dose Route Start Last Admin Trade Name Freq PRN Reason Stop Dose Admin Acetaminophen 650 mg 09/14/18 13:02 09/16/18 22:01 Tylenol PO 650 mg Q4HR PRN Administration Pain 1 to 4 Albuterol/Ipratropium 3 ml 09/14/18 13:02 09/16/18 18:00 Duoneb INH 3 ml RTQID PRN Administration Wheezing Benzonatate 100 mg 09/16/18 09:05 09/17/18 04:02 Tessalon PO 100 mg TID PRN Administration Cough Enoxaparin Sodium 40 mg 09/15/18 09:00 09/17/18 08:28 Lovenox SUBQ 40 mg DAILY JACQUELINE Administration Famotidine 20 mg 09/14/18 21:00 09/17/18 08:27 Pepcid PO 20 mg BID JACQUELINE Administration Guaifenesin/Codeine Phosphate 5 ml 09/16/18 09:05 09/17/18 04:02 Robitussin Ac PO 5 ml Q6HR PRN Administration Cough Azithromycin 500 mg/ Sodium 250 mls @ 250 mls/hr 09/14/18 14:00 09/16/18 17:58 Chloride IV Infused Q24H JACQUELINE Infusion Ceftriaxone Sodium 2 gm/ 100 mls @ 200 mls/hr 09/14/18 16:00 09/16/18 17:55 Sodium Chloride IV Infused Q24H JACQUELINE Infusion Ibuprofen 600 mg 09/14/18 13:02 09/16/18 03:00 Motrin PO 600 mg Q6HR PRN Administration Pain 1 to 4 Methylprednisolone 40 mg 09/14/18 18:00 09/17/18 06:26 Solu-Medrol (40mg Vial) IVP 40 mg Q6HR JACQUELINE Administration Polyethylene Glycol 17 gm 09/15/18 09:00 09/17/18 08:28 Miralax PO Not Given DAILY JACQUELINE Saccharomyces Boulardii 250 mg 09/14/18 17:00 09/17/18 08:27 Florastor PO 250 mg BIDWM JACQUELINE Administration Sodium Chloride 10 ml 09/14/18 13:02 09/17/18 06:26 Normal Saline Flush 0.9% IVP 10 ml PRN PRN Administration NEEDED PER PROVIDER ORDERS Sodium Chloride 10 ml 09/14/18 17:00 09/17/18 08:27 Normal Saline Flush 0.9% IVP 10 ml 0100,0900,1700 JACQUELINE Administration - Lab Result Lab results reviewed: Yes Fish Bone Diagrams: 09/17/18 06:04 09/17/18 06:04 - Diagnostic Imaging Results Diagnostic Imaging Results: Final report reviewed - Additional Planning Condition/Complexity: Guarded My Orders: My Active Orders 09/16/18 09:05 Benzonatate [Tessalon] 100 mg PO TID PRN guaiFENesin/CODEINE [Robitussin AC] 5 ml PO Q6HR PRN 09/17/18 01:01 IS [Incentive Spirometry - RT] [RC] .prn Plan Discussed with:: Patient Time Spent: 31-60 minutes Subjective - Subjective Patient Reports: Cough (Very bad last night), Shortness of Breath, Other (No fevers overnight.) Nursing Reports: No Complaints Objective Vital Signs: Vital Signs - 24 hr 09/16/18 09/16/18 09/16/18 09:30 13:53 16:38 Temperature 36.8 C 36.5 C Heart Rate 61 Heart Rate [ 83 50 L Brachial] Heart Rate [ Monitoring electrodes] Respiratory 14 20 20 Rate Blood Pressure 116/57 L 109/51 L [Right Brachial artery] O2 Saturation 94 94 09/16/18 09/16/18 09/17/18 18:00 20:41 00:53 Temperature 36.6 C 36.3 C L Heart Rate 68 Heart Rate [ 53 L 46 L Brachial] Heart Rate [ Monitoring electrodes] Respiratory 16 20 20 Rate Blood Pressure 105/50 L 110/53 L [Right Brachial artery] O2 Saturation 93 94 09/17/18 09/17/18 05:00 07:33 Temperature 36.6 C 36.5 C Heart Rate Heart Rate [ 52 L 44 L Brachial] Heart Rate [ 20 L Monitoring electrodes] Respiratory 20 18 Rate Blood Pressure 109/46 L 110/61 [Right Brachial artery] O2 Saturation 95 94 Oxygen O2 Source Room air Oxygen Flow Rate 2 I&O (Last 24 Hrs): Intake and Output Totals x24h 09/15/18 09/16/18 09/17/18 23:59 23:59 23:59 Intake Total 5113.333 3270 450 Output Total 600 Balance 4513.333 3270 450 General: Alert, Oriented x3, Cooperative, Mild distress (Coughing not feeling well) HEENT: Atraumatic, PERRLA, EOMI, Mucous membr. moist/pink Neck: Supple, No JVD, No thyromegaly, +2 carotid pulse wo bruit, No LAD Lymphatic: no adenopathy Neuro: Alert, Non Focal, CN 2-12 Grossly Intact, Oriented Times 3 Cardiovascular: Regular rate, Normal S1, Normal S2, No murmurs Respiratory: Chest non-tender, Wheezes (Bilateral), Rhonchi (BIlateral worse on the right) Abdomen: Normal bowel sounds, Soft, No tenderness, No hepatospenomegaly Extremities: No clubbing, No cyanosis, No edema, Normal pulses Skin: No rashes, No breakdown - Results Results: Laboratory Results WBC 14.2 x10^3/uL (4.8-10.8) H 09/17/18 06:04 RBC 3.58 10^6/uL (4.20-5.40) L 09/17/18 06:04 Hgb 11.2 g/dL (12.0-16.0) L 09/17/18 06:04 Hct 34.7 % (37.0-47.0) L 09/17/18 06:04 MCV 96.8 fL (81.0-99.0) 09/17/18 06:04 MCH 31.3 pg (27.0-31.0) H 09/17/18 06:04 MCHC 32.3 g/dL (32.0-36.0) 09/17/18 06:04 RDW 14.0 % (12.0-15.0) 09/17/18 06:04 Plt Count 248 10^3/uL (130-450) 09/17/18 06:04 MPV 8.3 fL (7.9-10.8) 09/17/18 06:04 Neut # (Auto) 12.3 10^3/uL (1.5-6.6) H 09/17/18 06:04 Lymph # (Auto) 1.5 10^3/uL (1.5-3.5) 09/17/18 06:04 [place] # (Auto) 0.4 10^3/uL (0.0-1.0) 09/17/18 06:04 Eos # (Auto) 0.0 10^3/uL (0.0-0.7) 09/17/18 06:04 Baso # (Auto) 0.0 10^3/uL (0.0-0.1) 09/17/18 06:04 Absolute Nucleated RBC 0.01 x10^3/uL 09/17/18 06:04 Nucleated RBC % 0.0 /100WBC 09/17/18 06:04 PT 16.2 secs (9.9-12.6) H 09/15/18 05:18 INR 1.4 (0.8-1.2) H 09/15/18 05:18 D-Dimer 506.7 ng/mL (200.0-255.0) H 09/14/18 12:55 Sodium 139 mmol/L (135-145) 09/17/18 06:04 Potassium 4.7 mmol/L (3.5-5.0) 09/17/18 06:04 Chloride 108 mmol/L (101-111) 09/17/18 06:04 Carbon Dioxide 24 mmol/L (21-32) 09/17/18 06:04 Anion Gap 7.0 (6-13) 09/17/18 06:04 BUN 19 mg/dL (6-20) 09/17/18 06:04 Creatinine 0.7 mg/dL (0.4-1.0) 09/17/18 06:04 Estimated GFR (MDRD) 84 (>89) L 09/17/18 06:04 Glucose 165 mg/dL (70-100) H 09/17/18 06:04 Lactic Acid 1.6 mmol/L (0.5-2.2) 09/16/18 06:02 Calcium 8.4 mg/dL (8.5-10.3) L 09/17/18 06:04 Phosphorus 4.5 mg/dL (2.5-4.6) 09/17/18 06:04 Magnesium 2.3 mg/dL (1.7-2.8) 09/17/18 06:04 Total Bilirubin < 0.2 mg/dL (0.2-1.0) L 09/17/18 06:04 AST 19 IU/L (10-42) 09/17/18 06:04 ALT 34 IU/L (10-60) 09/17/18 06:04 Alkaline Phosphatase 61 IU/L (42-121) 09/17/18 06:04 Troponin I < 0.04 ng/mL (<0.49) 09/15/18 00:59 Total Protein 5.9 g/dL (6.7-8.2) L 09/17/18 06:04 Albumin 2.7 g/dL (3.2-5.5) L 09/17/18 06:04 Globulin 3.2 g/dL (2.1-4.2) 09/17/18 06:04 Albumin/Globulin Ratio 0.8 (1.0-2.2) L 09/17/18 06:04 Lipase 23 U/L (22-51) 09/14/18 13:11 Influenza A (Rapid) Negative (Negative) 09/14/18 16:00 Influenza B (Rapid) Negative (Negative) 09/14/18 16:00 - Procedures Procedures: Procedures EXCISION OF ASCENDING COLON, ENDO, DIAGN (06/02/16) ABX Reporting Has patient been on IV antibiotics over the past 48 hours?: Yes Current Medications - Current Medications Current Medications: Active Medications Generic Name Dose Route Start Last Admin Trade Name Freq PRN Reason Stop Dose Admin Acetaminophen 650 mg 09/14/18 13:02 09/16/18 22:01 Tylenol PO 650 mg Q4HR PRN Administration Pain 1 to 4 Albuterol/Ipratropium 3 ml 09/14/18 13:02 09/16/18 18:00 Duoneb INH 3 ml RTQID PRN Administration Wheezing Benzonatate 100 mg 09/16/18 09:05 09/17/18 04:02 Tessalon PO 100 mg TID PRN Administration Cough Enoxaparin Sodium 40 mg 09/15/18 09:00 09/17/18 08:28 Lovenox SUBQ 40 mg DAILY JACQUELINE Administration Famotidine 20 mg 09/14/18 21:00 09/17/18 08:27 Pepcid PO 20 mg BID JACQUELINE Administration Guaifenesin/Codeine Phosphate 5 ml 09/16/18 09:05 09/17/18 04:02 Robitussin Ac PO 5 ml Q6HR PRN Administration Cough Azithromycin 500 mg/ Sodium 250 mls @ 250 mls/hr 09/14/18 14:00 09/16/18 17:58 Chloride IV Infused Q24H JACQUELINE Infusion Ceftriaxone Sodium 2 gm/ 100 mls @ 200 mls/hr 09/14/18 16:00 09/16/18 17:55 Sodium Chloride IV Infused Q24H JACQUELINE Infusion Ibuprofen 600 mg 09/14/18 13:02 09/16/18 03:00 Motrin PO 600 mg Q6HR PRN Administration Pain 1 to 4 Methylprednisolone 40 mg 09/14/18 18:00 09/17/18 06:26 Solu-Medrol (40mg Vial) IVP 40 mg Q6HR JACQUELINE Administration Ondansetron HCl 4 mg 09/14/18 13:02 Zofran Inj IVP Q6HR PRN Nausea / Vomiting Polyethylene Glycol 17 gm 09/15/18 09:00 09/17/18 08:28 Miralax PO Not Given DAILY JACQUELINE Prochlorperazine Edisylate 10 mg 09/14/18 13:02 Compazine Inj IVP Q6HR PRN Nausea / Vomiting Saccharomyces Boulardii 250 mg 09/14/18 17:00 09/17/18 08:27 Florastor PO 250 mg BIDWM JACQUELINE Administration Sodium Chloride 10 ml 09/14/18 13:02 09/17/18 06:26 Normal Saline Flush 0.9% IVP 10 ml PRN PRN Administration NEEDED PER PROVIDER ORDERS Sodium Chloride 10 ml 09/14/18 17:00 09/17/18 08:27 Normal Saline Flush 0.9% IVP 10 ml [id number],1700 JACQUELINE Administration Zolpidem Tartrate 5 mg 09/14/18 13:02 Ambien PO QPM PRN Insomnia Albuterol Sulfate [Proair Hfa Inhaler] 2 puffs INH Q4H PRN 09/14/18 Meloxicam 15 mg PO DAILY PRN 09/14/18
[2018-09-17] MEDS: ACETAMINOPHEN 325 MG TABLET PO PRN ×3 (09:58→22:28)
[2018-09-17] MEDS: AZITHROMYCIN INJ 500 MG in SODIUM CHLORIDE 0.9% 250 ML IV SCH (13:54)
[2018-09-17] MEDS: IPRATROPIUM/ALBUTEROL 3 ML NEB INH PRN (14:39)
--- NOTE | 2018-09-17 14:39 | PROVIDER PROGRESS NOTE ---
Assessment/Plan - Problem List (1) Acute respiratory failure with hypoxia Assessment/Plan: Improving Weaning off O2 today Trial on RA this afternoon If patient tolerates may discharge tomorrow (2) Multifocal pneumonia Conclusion/Plan: Weaning O2 Feels better Continue Ceftriaxone and Azithromycin day 4 Duo nebs IV steroids Supplemental oxygen Repeat chest x-ray looks worse WBC improved Change to PO abx, levaquin and steroids today (3) COPD exacerbation Conclusion/Plan: Patient is a longtime smoker and on her CT angiography of the thorax the patient appears to have emphysema. The patient also has wheezing on examination. Patient appears to have COPD exacerbation secondary to multifocal pneumonia. Worse today Plan: Duonebs Change IV solumedrol to PO prednisone Weaning O2 (4) Tobacco abuse Conclusion/Plan: Patient counselled and offered nicotine patch (5) Hypokalemia Conclusion/Plan: Resolved Likely discharge tomorrow - Current Meds Current Meds: Current Medications Generic Name Dose Route Start Last Admin Trade Name Freq PRN Reason Stop Dose Admin Acetaminophen 650 mg 09/14/18 13:02 09/17/18 09:58 Tylenol PO 650 mg Q4HR PRN Administration Pain 1 to 4 Albuterol/Ipratropium 3 ml 09/14/18 13:02 09/16/18 18:00 Duoneb INH 3 ml RTQID PRN Administration Wheezing Benzonatate 100 mg 09/16/18 09:05 09/17/18 13:01 Tessalon PO 100 mg TID PRN Administration Cough Enoxaparin Sodium 40 mg 09/15/18 09:00 09/17/18 08:28 Lovenox SUBQ 40 mg DAILY JACQUELINE Administration Famotidine 20 mg 09/14/18 21:00 09/17/18 08:27 Pepcid PO 20 mg BID JACQUELINE Administration Guaifenesin/Codeine Phosphate 5 ml 09/16/18 09:05 09/17/18 09:58 Robitussin Ac PO 5 ml Q6HR PRN Administration Cough Azithromycin 500 mg/ Sodium 250 mls @ 250 mls/hr 09/14/18 14:00 09/17/18 13:54 Chloride IV 250 mls/hr Q24H JACQUELINE Administration Ceftriaxone Sodium 2 gm/ 100 mls @ 200 mls/hr 09/14/18 16:00 09/16/18 17:55 Sodium Chloride IV Infused Q24H JACQUELINE Infusion Ibuprofen 600 mg 09/14/18 13:02 09/16/18 03:00 Motrin PO 600 mg Q6HR PRN Administration Pain 1 to 4 Methylprednisolone 40 mg 09/14/18 18:00 09/17/18 12:20 Solu-Medrol (40mg Vial) IVP 40 mg Q6HR JACQUELINE Administration Polyethylene Glycol 17 gm 09/15/18 09:00 09/17/18 08:28 Miralax PO Not Given DAILY JACQUELINE Saccharomyces Boulardii 250 mg 09/14/18 17:00 09/17/18 08:27 Florastor PO 250 mg BIDWM JACQUELINE Administration Sodium Chloride 10 ml 09/14/18 13:02 09/17/18 13:55 Normal Saline Flush 0.9% IVP 10 ml PRN PRN Administration NEEDED PER PROVIDER ORDERS Sodium Chloride 10 ml 09/14/18 17:00 09/17/18 08:27 Normal Saline Flush 0.9% IVP 10 ml [id number] JACQUELINE Administration - Lab Result Lab results reviewed: Yes Fish Bone Diagrams: 09/17/18 06:04 09/17/18 06:04 - Diagnostic Imaging Results Diagnostic Imaging Results: Final report reviewed - Additional Planning Condition/Complexity: Improved My Orders: My Active Orders 09/17/18 01:01 IS [Incentive Spirometry - RT] [RC] .prn Plan Discussed with:: Patient Time Spent: 31-60 minutes Subjective - Subjective Patient Reports: Feeling Better, Resting Comfortably, No Complaints, Cough (Improved), Shortness of Breath (Improved) Nursing Reports: No Complaints Objective Vital Signs: Vital Signs - 24 hr 09/16/18 09/16/18 09/16/18 16:38 18:00 20:41 Temperature 36.5 C 36.6 C Heart Rate 68 Heart Rate [ 50 L 53 L Brachial] Heart Rate [ Monitoring electrodes] Respiratory 20 16 20 Rate Blood Pressure 109/51 L 105/50 L [Right Brachial artery] O2 Saturation 94 93 09/17/18 09/17/18 09/17/18 00:53 05:00 07:33 Temperature 36.3 C L 36.6 C 36.5 C Heart Rate Heart Rate [ 46 L 52 L 44 L Brachial] Heart Rate [ 20 L Monitoring electrodes] Respiratory 20 20 18 Rate Blood Pressure 110/53 L 109/46 L 110/61 [Right Brachial artery] O2 Saturation 94 95 94 09/17/18 09/17/18 09/17/18 11:30 11:40 12:49 Temperature 36.5 C Heart Rate Heart Rate [ 52 L 69 63 Brachial] Heart Rate [ Monitoring electrodes] Respiratory 18 20 20 Rate Blood Pressure 115/52 L [Right Brachial artery] O2 Saturation 93 93 95 09/17/18 13:36 Temperature Heart Rate Heart Rate [ 67 Brachial] Heart Rate [ Monitoring electrodes] Respiratory 20 Rate Blood Pressure [Right Brachial artery] O2 Saturation 94 Oxygen O2 Source Nasal cannula Oxygen Flow Rate 2 I&O (Last 24 Hrs): Intake and Output Totals x24h 09/15/18 09/16/18 09/17/18 23:59 23:59 23:59 Intake Total 5113.333 3270 1510 Output Total 600 Balance 4513.333 3270 1510 General: Alert, Oriented x3, Cooperative, No acute distress HEENT: Atraumatic, PERRLA, EOMI, Mucous membr. moist/pink Neck: Supple, No JVD, No thyromegaly, +2 carotid pulse wo bruit, No LAD Lymphatic: no adenopathy Neuro: Alert, Non Focal, CN 2-12 Grossly Intact, Oriented Times 3 Cardiovascular: Regular rate, Normal S1, Normal S2, No murmurs Respiratory: Chest non-tender, No respiratory distress, Wheezes (Bilateral scattered), Rhonchi (Bilateral improving) Abdomen: Normal bowel sounds, Soft, No tenderness, No hepatospenomegaly Extremities: No clubbing, No cyanosis, No edema, Normal pulses, No tenderness/swelling Skin: No rashes, No breakdown - Results Results: Laboratory Results WBC 14.2 x10^3/uL (4.8-10.8) H 09/17/18 06:04 RBC 3.58 10^6/uL (4.20-5.40) L 09/17/18 06:04 Hgb 11.2 g/dL (12.0-16.0) L 09/17/18 06:04 Hct 34.7 % (37.0-47.0) L 09/17/18 06:04 MCV 96.8 fL (81.0-99.0) 09/17/18 06:04 MCH 31.3 pg (27.0-31.0) H 09/17/18 06:04 MCHC 32.3 g/dL (32.0-36.0) 09/17/18 06:04 RDW 14.0 % (12.0-15.0) 09/17/18 06:04 Plt Count 248 10^3/uL (130-450) 09/17/18 06:04 MPV 8.3 fL (7.9-10.8) 09/17/18 06:04 Neut # (Auto) 12.3 10^3/uL (1.5-6.6) H 09/17/18 06:04 Lymph # (Auto) 1.5 10^3/uL (1.5-3.5) 09/17/18 06:04 Ector # (Auto) 0.4 10^3/uL (0.0-1.0) 09/17/18 06:04 Eos # (Auto) 0.0 10^3/uL (0.0-0.7) 09/17/18 06:04 Baso # (Auto) 0.0 10^3/uL (0.0-0.1) 09/17/18 06:04 Absolute Nucleated RBC 0.01 x10^3/uL 09/17/18 06:04 Nucleated RBC % 0.0 /100WBC 09/17/18 06:04 PT 16.2 secs (9.9-12.6) H 09/15/18 05:18 INR 1.4 (0.8-1.2) H 09/15/18 05:18 D-Dimer 506.7 ng/mL (200.0-255.0) H 09/14/18 12:55 Sodium 139 mmol/L (135-145) 09/17/18 06:04 Potassium 4.7 mmol/L (3.5-5.0) 09/17/18 06:04 Chloride 108 mmol/L (101-111) 09/17/18 06:04 Carbon Dioxide 24 mmol/L (21-32) 09/17/18 06:04 Anion Gap 7.0 (6-13) 09/17/18 06:04 BUN 19 mg/dL (6-20) 09/17/18 06:04 Creatinine 0.7 mg/dL (0.4-1.0) 09/17/18 06:04 Estimated GFR (MDRD) 84 (>89) L 09/17/18 06:04 Glucose 165 mg/dL (70-100) H 09/17/18 06:04 Lactic Acid 1.6 mmol/L (0.5-2.2) 09/16/18 06:02 Calcium 8.4 mg/dL (8.5-10.3) L 09/17/18 06:04 Phosphorus 4.5 mg/dL (2.5-4.6) 09/17/18 06:04 Magnesium 2.3 mg/dL (1.7-2.8) 09/17/18 06:04 Total Bilirubin < 0.2 mg/dL (0.2-1.0) L 09/17/18 06:04 AST 19 IU/L (10-42) 09/17/18 06:04 ALT 34 IU/L (10-60) 09/17/18 06:04 Alkaline Phosphatase 61 IU/L (42-121) 09/17/18 06:04 Troponin I < 0.04 ng/mL (<0.49) 09/15/18 00:59 Total Protein 5.9 g/dL (6.7-8.2) L 09/17/18 06:04 Albumin 2.7 g/dL (3.2-5.5) L 09/17/18 06:04 Globulin 3.2 g/dL (2.1-4.2) 09/17/18 06:04 Albumin/Globulin Ratio 0.8 (1.0-2.2) L 09/17/18 06:04 Lipase 23 U/L (22-51) 09/14/18 13:11 Influenza A (Rapid) Negative (Negative) 09/14/18 16:00 Influenza B (Rapid) Negative (Negative) 09/14/18 16:00 - Procedures Procedures: Procedures EXCISION OF ASCENDING COLON, ENDO, DIAGN (06/02/16) ABX Reporting Has patient been on IV antibiotics over the past 48 hours?: Yes Current Medications - Current Medications Current Medications: Active Medications Generic Name Dose Route Start Last Admin Trade Name Freq PRN Reason Stop Dose Admin Acetaminophen 650 mg 09/14/18 13:02 09/17/18 09:58 Tylenol PO 650 mg Q4HR PRN Administration Pain 1 to 4 Albuterol/Ipratropium 3 ml 09/14/18 13:02 09/17/18 14:39 Duoneb INH 3 ml RTQID PRN Administration Wheezing Benzonatate 100 mg 09/16/18 09:05 09/17/18 13:01 Tessalon PO 100 mg TID PRN Administration Cough Enoxaparin Sodium 40 mg 09/15/18 09:00 09/17/18 08:28 Lovenox SUBQ 40 mg DAILY JACQUELINE Administration Famotidine 20 mg 09/14/18 21:00 09/17/18 08:27 Pepcid PO 20 mg BID [facility] Administration Guaifenesin/Codeine Phosphate 5 ml 09/16/18 09:05 09/17/18 09:58 Robitussin Ac PO 5 ml Q6HR PRN Administration Cough Ibuprofen 600 mg 09/14/18 13:02 09/16/18 03:00 Motrin PO 600 mg Q6HR PRN Administration Pain 1 to 4 Levofloxacin 750 mg 09/18/18 09:00 Levaquin PO DAILY [facility] Ondansetron HCl 4 mg 09/14/18 13:02 Zofran Inj IVP Q6HR PRN Nausea / Vomiting Polyethylene Glycol 17 gm 09/15/18 09:00 09/17/18 08:28 Miralax PO Not Given DAILY [facility] Prednisone 40 mg 09/18/18 08:00 Deltasone PO DAILYWM [facility] Prochlorperazine Edisylate 10 mg 09/14/18 13:02 Compazine Inj IVP Q6HR PRN Nausea / Vomiting Saccharomyces Boulardii 250 mg 09/14/18 17:00 09/17/18 08:27 Florastor PO 250 mg BIDWM [facility] Administration Sodium Chloride 10 ml 09/14/18 13:02 09/17/18 13:55 Normal Saline Flush 0.9% IVP 10 ml PRN PRN Administration NEEDED PER PROVIDER ORDERS Sodium Chloride 10 ml 09/14/18 17:00 09/17/18 08:27 Normal Saline Flush 0.9% IVP 10 ml 0100,[id number],1700 JACQUELINE Administration Zolpidem Tartrate 5 mg 09/14/18 13:02 Ambien PO QPM PRN Insomnia Albuterol Sulfate [Proair Hfa Inhaler] 2 puffs INH Q4H PRN 09/14/18 Meloxicam 15 mg PO DAILY PRN 09/14/18
--- NOTE | 2018-09-17 15:38 | Discharge Plan ---
Discharge Plan Disposition: Home, Self Care Condition: Good Prescriptions: guaiFENesin/CODEINE [Robitussin AC] 5 ml PO Q6HR PRN #1 udc PRN Reason: Cough Benzonatate [Tessalon] 100 mg PO TID PRN #21 capsule PRN Reason: Cough levoFLOXacin [Levaquin] 750 mg PO DAILY #7 tablet predniSONE [Deltasone] 40 mg PO DAILYWM #14 tablet Salmeterol Xinafoate [Serevent Diskus] 50 mcg IH BID #1 blst.w.dev Diet: Regular Activity Restrictions: Activity as Tolerated Shower Restrictions: Yes Driving Restrictions: Yes Weight Bearing: Full Weight Instruction Topics: ED Pneumonia Adult Additional Instructions or Follow Up instructions: You were admitted to the hospital with a multifocal pneumonia and a COPD exacerbation. We did a CT scan of your chest which showed a multifocal pneumonia and showed that you have COPD. While you were here you refrain from smoking cigarettes and we hope that you will continue to keep from smoking in the future as the smoking has already done significant damage to your lungs and will continue to damage her lungs if you do not stop. While you were hospitalized you were requiring oxygen as your pneumonia was quite severe. Over the course of the hospitalization we were able to wean you off of oxygen and we treated you with IV antibiotics. You have now been switched to oral antibiotic and will continue it for another 7 days. You were also given an IV steroid while you were hospitalized for treatment of your COPD and your wheezing seems to be better. I have prescribed you an oral antibiotic for an additional 7 days to complete treatment for COPD. You also had a bad cough due to the pneumonia and COPD and are being prescribed cough suppressants. For your COPD you should continue to take your albuterol inhaler as needed and once you complete your oral steroid you need to follow-up with your primary care physician as you would benefit from an inhaled corticosteroid. In addition to your albuterol I have also prescribed you a long-acting beta agonist which should also help with your COPD. Please follow-up with your primary care physician once you have completed treatment for a repeat chest x-ray. Follow-Up Care: [facility] - Pulmonary No Smoking: If you smoke, Please STOP! Call for help. Follow-up with: Pastora Garcia PA-C [Primary Care Provider] -
[2018-09-17] MEDS: levoFLOXacin 250 MG TABLET PO SCH (16:19)
[2018-09-18] MEDS: IPRATROPIUM/ALBUTEROL 3 ML NEB INH PRN ×2 (06:03→09:56)
[2018-09-18] MEDS: BENZONATATE 100 MG CAPSULE PO PRN (06:20)
[2018-09-18] MEDS: SACCHAROMYCES BOULARDII 250 MG CAPSULE PO SCH (07:56)
[2018-09-18] MEDS ORDERED: predniSONE 20 MG TABLET PO SCH (08:00)
[2018-09-18] MEDS: guaiFENesin/CODEINE 5 ML UDC PO PRN (08:04)
[2018-09-18] MEDS: ACETAMINOPHEN 325 MG TABLET PO PRN (08:04)
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
[2018-09-18] MEDS ORDERED: levoFLOXacin 250 MG TABLET PO SCH (09:00)
[2018-09-18] MEDS: ENOXAPARIN 40 MG/0.4 ML SYRINGE SUBQ SCH (10:10)
[2018-09-18] MEDS: FAMOTIDINE 20 MG TABLET PO SCH (10:11)
[2018-09-18] MEDS: levoFLOXacin 250 MG TABLET PO SCH (10:11)
[2018-09-18] MEDS: POLYETHYLENE GLYCOL 3350 17 GM PACKET PO SCH (10:11)
[2018-09-18] MEDS: SODIUM CHLORIDE FLUSH 0.9% 10 ML SYRINGE IVP SCH (10:12)
[2018-09-18 10:30] VITALS: BP 120/54
== END 2018-09-18 11:45 | disposition home or self-care (01) | DRG 189 ==
LOC: ED 10:39 → ICU 13:02 → MS2 09-15 11:49
PROVIDERS: ADMIT Internal Medicine; ATTEND Internal Medicine
DX: R09.02 Hypoxemia (principal); J96.01 Acute respiratory failure with hypoxia; J18.9 Pneumonia, unspecified organism; J44.1 Chronic obstructive pulmonary disease with (acute) exacerbation; E87.6 Hypokalemia; H54.7 Unspecified visual loss; M16.12 Unilateral primary osteoarthritis, left hip; F17.200 Nicotine dependence, unspecified, uncomplicated
CPT/HCPCS: 36415; 71046; 71275; 80053; 83605; 83690; 83735; 84100; 84484; 85025; 85379; 85610; 87150; 87275; 87276; 94640; 94664; 99282; 99283; 99284

== ENCOUNTER 2018-09-27 12:51 | Outpatient (CLI) | payer OTHER ==
--- NOTE | 2018-09-27 15:00 | XRAY Report ---
Reason: PNEUMONIA AND INFLUENZA Procedure Date: 09/27/2018 Accession Number: [id number] / [id number] Procedure: XR - Chest 2 View X-Ray CPT Code: 54538 FULL RESULT: EXAM: CHEST RADIOGRAPHY EXAM DATE: 09/27/2018 12:54 PM. CLINICAL HISTORY: Pneumonia and influenza. COMPARISON: CHEST 2 VIEW 09/16/2018 7:58 AM. TECHNIQUE: 2 views. FINDINGS: Lungs/Pleura: No new focal opacities evident. Trace fluid is again seen in the horizontal fissure with no pleural effusion seen otherwise. No pneumothorax. Normal volumes. Mediastinum: Heart and mediastinal contours are stable. Other: None. IMPRESSION: No pulmonary consolidation to suggest pneumonia. RADIA
== END 2018-09-27 12:52 | disposition home or self-care (01) ==
LOC: DI 12:51
PROVIDERS: ATTEND Registered Nurse
DX: J11.00 Influenza due to unidentified influenza virus with unspecified type of pneumonia (principal)
CPT/HCPCS: 71046

== ENCOUNTER 2019-02-01 09:29 | Outpatient (CLI) | payer MEDICARE, OTHER | END 2019-02-01 09:30 | disposition home or self-care (01) | LOC: LAB.F 09:29 | PROVIDERS: ATTEND Physician Assistant Medical | DX: R53.83 Other fatigue (principal); R63.5 Abnormal weight gain | CPT/HCPCS: 36415; 84443 ==

== ENCOUNTER 2019-09-24 09:04 | Outpatient (CLI) | payer MEDICARE, OTHER ==
[2019-09-24 17:39] LABS: ALBUMIN/GLOBULIN RATIO 1.1 (1.0-2.2); ALKALINE PHOSPHATASE 69 IU/L (42-121); ALT ALANINE AMINOTRANSFERASE 18 IU/L (10-60); AST ASPARTATE AMINOTRANSFERASE 16 IU/L (10-42); BILIRUBIN,TOTAL 1.1 mg/dL (0.2-1.0); BUN - BLOOD UREA NITROGEN 27 mg/dL (6-20); CALCIUM 8.6 mg/dL (8.5-10.3); CARBON DIOXIDE - CO2 24 mmol/L (21-32); CHLORIDE 100 mmol/L (101-111); CHOL/HDL RATIO 2.8 (<4.4); CHOLESTEROL 209 mg/dL; CREATININE 0.9 mg/dL (0.4-1.0); GFR - MDRD 63 (>89); GLUCOSE 125 mg/dL (70-100); HDL CHOLESTEROL 74 mg/dL; LDL CHOLESTEROL,CALCULATED 122 mg/dL; LDL/HDL RATIO 1.6 (<4.4); SODIUM 133 mmol/L (135-145); TOTAL PROTEIN 7.8 g/dL (6.7-8.2); VLDL CHOLESTEROL 13 mg/dL
[2019-09-24 18:27] LABS: FREE T4 (FREE THYROXINE) 0.81 ng/dL (0.58-1.64)
== END 2019-09-24 09:05 | disposition home or self-care (01) ==
LOC: LAB.S 09:04
PROVIDERS: ATTEND Internal Medicine
DX: Z00.00 Encounter for general adult medical examination without abnormal findings (principal); E03.9 Hypothyroidism, unspecified
CPT/HCPCS: 36415; 80053; 80061; 83721; 84439; 84443

== ENCOUNTER 2019-10-15 10:30 | Outpatient (CLI) | payer OTHER ==
--- NOTE | 2019-10-15 15:56 | XRAY Report ---
Reason: COPD Procedure Date: 10/15/2019 Accession Number: [id number] / [id number] Procedure: XR - Chest 2 View X-Ray CPT Code: 07266 Final Report FULL RESULT: EXAM: CHEST RADIOGRAPHY EXAM DATE: 10/15/2019 10:38 AM. CLINICAL HISTORY: COPD. COMPARISON: CHEST 2 VIEW 09/27/2018 12:54 PM CHEST 2 VIEW 09/16/2018 7:58 AM CHEST ANGIO 09/14/2018 1:41 PM. TECHNIQUE: 2 views. FINDINGS: Lungs/Pleura: Areas of scarring bilaterally. Increased interstitial markings bilaterally. Emphysematous changes. No pleural effusion. No pneumothorax. Normal volumes. Mediastinum: Heart and mediastinal contours are unremarkable. Other: None. IMPRESSION: 1. Emphysematous changes 2. No focal infiltrate RADIA
== END 2019-10-15 10:31 | disposition home or self-care (01) ==
LOC: DI 10:30
PROVIDERS: ATTEND Physician Assistant Medical
DX: J43.9 Emphysema, unspecified (principal)
CPT/HCPCS: 71046

== ENCOUNTER 2019-10-25 08:49 | Outpatient (CLI) | payer OTHER ==
--- NOTE | 2019-10-25 09:44 | Mammography Report ---
Reason: ROUTINE MAMMO Procedure Date: 10/25/2019 Accession Number: [id number] / [id number] Procedure: MGS - Screening Mammo Dig Bilat CPT Code: Final Report FULL RESULT: EXAM: Screening Mammo Dig Bilat DATE: 10/25/2019 9:05 AM CLINICAL HISTORY: Screening encounter. History of late childbearing. TECHNIQUE: (B) - Bilateral CC and MLO views were obtained. COMPARISON: 01/11/2016. PARENCHYMAL PATTERN: (F) - The breast(s) demonstrate(s) diffuse fatty replacement. FINDINGS: There are no suspicious masses, calcifications, or areas of distortion. IMPRESSION: Negative examination. BI-RADS category 1. RECOMMENDATION: (ANNUAL) - Recommend routine annual screening mammography. BI-RADS CATEGORY: (1) - Negative. STANDARD QUALIFYING STATEMENTS: 1. This examination was reviewed with the aid of Computer-Aided Detection (CAD). 2. A negative or benign imaging report should not preclude biopsy if clinically suspicious findings are present. 3. Dense breasts may obscure an underlying neoplasm. 4. This examination was reviewed without the aid of 3D breast imaging (tomosynthesis).
== END 2019-10-25 08:50 | disposition home or self-care (01) ==
LOC: DI.S 08:49
PROVIDERS: ATTEND Internal Medicine
DX: Z12.31 Encounter for screening mammogram for malignant neoplasm of breast (principal)
CPT/HCPCS: 77067

== ENCOUNTER 2019-11-11 12:57 | Outpatient (CLI) | payer OTHER ==
[~2019-11-11 12:57] MED LIST: ALBUTEROL NEB 2.5 MG/3 ML INH ONE
== END 2019-11-11 12:58 | disposition home or self-care (01) ==
LOC: RT 12:57
PROVIDERS: ATTEND Physician Assistant Medical
DX: J44.1 Chronic obstructive pulmonary disease with (acute) exacerbation (principal)

== ENCOUNTER 2019-12-12 09:10 | Outpatient (CLI) | payer OTHER | END 2019-12-12 09:11 | disposition home or self-care (01) | LOC: LAB.S 09:10 | PROVIDERS: ATTEND Internal Medicine | DX: E03.9 Hypothyroidism, unspecified (principal) | CPT/HCPCS: 36415; 84443 ==

== ENCOUNTER 2020-09-08 09:13 | Outpatient (CLI) | payer OTHER ==
[2020-09-08 15:57] LABS: BASOPHILS # (AUTO) 0.1 10^3/uL (0.0-0.1); BASOPHILS % (AUTO) 0.7 %; EOSINOPHILS # (AUTO) 0.3 10^3/uL (0.0-0.7); EOSINOPHILS % (AUTO) 3.1 %; HGB - HEMOGLOBIN 13.8 g/dL (12.0-16.0); LYMPHOCYTES # (AUTO) 3.5 10^3/uL (1.5-3.5); LYMPHOCYTES % (AUTO) 42.3 %; MEAN CORPUSCULAR HEMOGLOBIN 30.9 pg (27.0-31.0); MEAN CORPUSCULAR HGB CONC 31.3 g/dL (32.0-36.0); MEAN CORPUSCULAR VOLUME 98.7 fL (81.0-99.0); MONOCYTES # (AUTO) 0.8 10^3/uL (0.0-1.0); MONOCYTES % (AUTO) 9.3 %; NEUTROPHILS # (AUTO) 3.6 10^3/uL (1.5-6.6); NEUTROPHILS % (AUTO) 44.2 %; PLT - PLATELET COUNT 234 10^3/uL (130-450); RED BLOOD COUNT 4.47 10^6/uL (4.20-5.40); RED CELL DISTRIBUTION WIDTH 14.1 % (12.0-15.0); WHITE BLOOD COUNT 8.2 x10^3/uL (4.8-10.8)
[2020-09-08 16:14] LABS: ALBUMIN/GLOBULIN RATIO 1.3 (1.0-2.2); ALKALINE PHOSPHATASE 77 IU/L (42-121); ALT ALANINE AMINOTRANSFERASE 24 IU/L (10-60); AST ASPARTATE AMINOTRANSFERASE 17 IU/L (10-42); BILIRUBIN,TOTAL 0.7 mg/dL (0.2-1.0); BUN - BLOOD UREA NITROGEN 29 mg/dL (6-20); CALCIUM 8.8 mg/dL (8.5-10.3); CARBON DIOXIDE - CO2 25 mmol/L (21-32); CHLORIDE 106 mmol/L (101-111); CHOL/HDL RATIO 3.6 (<4.4); CHOLESTEROL 201 mg/dL; CREATININE 0.7 mg/dL (0.4-1.0); GLUCOSE 107 mg/dL (70-100); HDL CHOLESTEROL 56 mg/dL; LDL CHOLESTEROL,CALCULATED 128 mg/dL; LDL/HDL RATIO 2.3 (<4.4); SODIUM 138 mmol/L (135-145); VLDL CHOLESTEROL 17 mg/dL
[2020-09-08 17:03] LABS: FREE T4 (FREE THYROXINE) 0.87 ng/dL (0.58-1.64)
== END 2020-09-08 09:14 | disposition home or self-care (01) ==
LOC: LAB.S 09:13
PROVIDERS: ATTEND Registered Nurse
DX: J44.9 Chronic obstructive pulmonary disease, unspecified (principal); E03.9 Hypothyroidism, unspecified; M54.5 Low back pain
CPT/HCPCS: 36415; 80053; 80061; 83721; 84439; 84443; 85025

== ENCOUNTER 2021-10-15 12:32 | Outpatient (CLI) | payer OTHER ==
[2021-10-15 15:46] LABS: BASOPHILS # (AUTO) 0.1 10^3/uL (0.0-0.1); BASOPHILS % (AUTO) 0.7 %; EOSINOPHILS # (AUTO) 0.3 10^3/uL (0.0-0.7); HCT - HEMATOCRIT 44.3 % (37.0-47.0); LYMPHOCYTES # (AUTO) 2.9 10^3/uL (1.5-3.5); LYMPHOCYTES % (AUTO) 32.8 %; MEAN CORPUSCULAR HEMOGLOBIN 30.7 pg (27.0-31.0); MEAN CORPUSCULAR HGB CONC 31.6 g/dL (32.0-36.0); MEAN CORPUSCULAR VOLUME 97.1 fL (81.0-99.0); MEAN PLATELET VOLUME 10.8 fL (7.9-10.8); MONOCYTES # (AUTO) 0.8 10^3/uL (0.0-1.0); MONOCYTES % (AUTO) 8.6 %; NEUTROPHILS # (AUTO) 4.8 10^3/uL (1.5-6.6); NEUTROPHILS % (AUTO) 54.6 %; PLT - PLATELET COUNT 240 10^3/uL (130-450); RED BLOOD COUNT 4.56 10^6/uL (4.20-5.40); RED CELL DISTRIBUTION WIDTH 13.7 % (12.0-15.0); WHITE BLOOD COUNT 8.9 x10^3/uL (4.8-10.8)
[2021-10-15 16:03] LABS: ALBUMIN 4.1 g/dL (3.2-5.5); ALBUMIN/GLOBULIN RATIO 1.3 (1.0-2.2); ALKALINE PHOSPHATASE 73 IU/L (42-121); ALT ALANINE AMINOTRANSFERASE 22 IU/L (10-60); AST ASPARTATE AMINOTRANSFERASE 15 IU/L (10-42); BILIRUBIN,TOTAL 0.4 mg/dL (0.2-1.0); BUN - BLOOD UREA NITROGEN 23 mg/dL (6-20); CALCIUM 8.7 mg/dL (8.5-10.3); CARBON DIOXIDE - CO2 26 mmol/L (21-32); CHLORIDE 104 mmol/L (101-111); CHOL/HDL RATIO 3.2 (<4.4); CHOLESTEROL 197 mg/dL; CREATININE 0.6 mg/dL (0.4-1.0); GFR - MDRD 99 (>89); GLUCOSE 108 mg/dL (70-100); HDL CHOLESTEROL 61 mg/dL; LDL CHOLESTEROL,CALCULATED 121 mg/dL; POTASSIUM 4.2 mmol/L (3.5-5.0); SODIUM 139 mmol/L (135-145); TOTAL PROTEIN 7.2 g/dL (6.7-8.2); TRIGLYCERIDES 75 mg/dL; VLDL CHOLESTEROL 15 mg/dL
[2021-10-15 16:15] LABS: THYROID STIMULATING HORMONE 5.38 uIU/mL (0.34-5.60)
== END 2021-10-15 12:33 | disposition home or self-care (01) ==
LOC: LAB.S 12:32
PROVIDERS: ATTEND Registered Nurse
DX: J44.9 Chronic obstructive pulmonary disease, unspecified (principal); E03.9 Hypothyroidism, unspecified
CPT/HCPCS: 36415; 80053; 80061; 83721; 84443; 85025

== ENCOUNTER 2022-01-02 14:39 | Outpatient (CLI) | payer OTHER ==
[2022-01-02] MEDS ORDERED: ALBUTEROL 1 PUFF INH STA (16:14)
== END 2022-01-02 14:40 | disposition home or self-care (01) ==
LOC: RT 14:39
PROVIDERS: ATTEND Registered Nurse
DX: J44.9 Chronic obstructive pulmonary disease, unspecified (principal)
CPT/HCPCS: 94060; 94729

== ENCOUNTER 2023-01-12 10:50 | Outpatient (CLI) | payer OTHER ==
[2023-01-12 14:27] LABS: BASOPHILS % (AUTO) 0.4 %; EOSINOPHILS # (AUTO) 0.2 10^3/uL (0.0-0.7); EOSINOPHILS % (AUTO) 2.4 %; HCT - HEMATOCRIT 44.7 % (37.0-47.0); LYMPHOCYTES # (AUTO) 3.3 10^3/uL (1.5-3.5); LYMPHOCYTES % (AUTO) 36.1 %; MEAN CORPUSCULAR HEMOGLOBIN 30.2 pg (27.0-31.0); MEAN CORPUSCULAR HGB CONC 31.3 g/dL (32.0-36.0); MEAN CORPUSCULAR VOLUME 96.3 fL (81.0-99.0); MEAN PLATELET VOLUME 10.5 fL (7.9-10.8); MONOCYTES # (AUTO) 0.9 10^3/uL (0.0-1.0); MONOCYTES % (AUTO) 10.3 %; NEUTROPHILS # (AUTO) 4.6 10^3/uL (1.5-6.6); NEUTROPHILS % (AUTO) 50.5 %; PLT - PLATELET COUNT 242 10^3/uL (130-450); RED BLOOD COUNT 4.64 10^6/uL (4.20-5.40); RED CELL DISTRIBUTION WIDTH 14.6 % (12.0-15.0); WHITE BLOOD COUNT 9.1 x10^3/uL (4.8-10.8)
[2023-01-12 15:20] LABS: ALBUMIN 4.1 g/dL (3.2-5.5); ALBUMIN/GLOBULIN RATIO 1.2 (1.0-2.2); ALKALINE PHOSPHATASE 74 IU/L (42-121); ALT ALANINE AMINOTRANSFERASE 22 IU/L (10-60); AST ASPARTATE AMINOTRANSFERASE 17 IU/L (10-42); BILIRUBIN,TOTAL 0.6 mg/dL (0.2-1.0); BUN - BLOOD UREA NITROGEN 23 mg/dL (6-20); CARBON DIOXIDE - CO2 29 mmol/L (21-32); CHLORIDE 104 mmol/L (101-111); CHOL/HDL RATIO 3.4 (<4.4); CHOLESTEROL 213 mg/dL; CREATININE 0.8 mg/dL (0.4-1.0); GFR - MDRD 71 (>89); GLUCOSE 125 mg/dL (70-100); HDL CHOLESTEROL 63 mg/dL; LDL CHOLESTEROL,CALCULATED 131 mg/dL; LDL/HDL RATIO 2.1 (<4.4); POTASSIUM 3.9 mmol/L (3.5-5.0); SODIUM 138 mmol/L (135-145); TOTAL PROTEIN 7.4 g/dL (6.7-8.2); TRIGLYCERIDES 93 mg/dL; VLDL CHOLESTEROL 19 mg/dL
[2023-01-12 15:33] LABS: THYROID STIMULATING HORMONE 5.61 uIU/mL (0.34-5.60)
[2023-01-12 16:13] LABS: FREE T4 (FREE THYROXINE) 0.84 ng/dL (0.58-1.64)
== END 2023-01-12 10:51 | disposition home or self-care (01) ==
LOC: LAB.S 10:50
PROVIDERS: ATTEND Registered Nurse
DX: E03.9 Hypothyroidism, unspecified (principal); Z79.899 Other long term (current) drug therapy; Z13.220 Encounter for screening for lipoid disorders
CPT/HCPCS: 36415; 80053; 80061; 83721; 84439; 84443; 85025

== ENCOUNTER 2023-04-04 09:52 | Outpatient (CLI) | payer OTHER ==
--- NOTE | 2023-04-05 09:01 | Mammography Report ---
BILATERAL DIGITAL SCREENING MAMMOGRAM 3D/2D: 04/04/2023 CLINICAL: Routine screening. Comparison is made to exams dated: 10/25/2019 mammogram and 01/11/2016 mammogram - [facility]. Both breasts are almost entirely fatty (category a/<25% glandular tissue). No significant masses, calcifications, or other findings are seen in either breast. There has been no significant interval change. IMPRESSION: NEGATIVE There is no mammographic evidence of malignancy. A 1 year screening mammogram is recommended. Based on the Tyrer Cuzick model (a risk assessment model) the patients lifetime risk is 3.6% and her 10 year risk is 2.1%. According to the ACR, ACS, and NCCN guidelines, an annual breast MRI exam jc g with mammogram is recommended if the patients lifetime risk is 20% or greater. This exam was interpreted at Station ID: [id number]. NOTE: For mammograms, a report in lay terms will be sent to the patient. Approximately 15% of breast malignancies will not be visualized mammographically. In the management of a palpable breast mass, a negative mammogram must not discourage biopsy of a clinically suspicious lesion. Electronically Signed By: Robel Van M.D. [email or web address]:04/04/2023 18:34:17 letter sent: No_Letter ACR BI-RADS Category 1: Negative 3341F PARENCHYMAL PATTERN: (F) - The breast(s) demonstrate(s) diffuse fatty replacement. BI-RADS CATEGORY: (1) - 1 Mammogram [id number] 1 year screening LATERALITY: (B)
== END 2023-04-04 09:53 | disposition home or self-care (01) ==
LOC: DI.S 09:52
PROVIDERS: ATTEND Registered Nurse
DX: Z12.31 Encounter for screening mammogram for malignant neoplasm of breast (principal)

== ENCOUNTER 2023-05-28 10:36 | Outpatient (CLI) | payer OTHER ==
[2023-05-28 11:35] LABS: ESTIMATED AVERAGE GLUCOSE 114 mg/dL (70-100); HEMOGLOBIN A1c% 5.6 % (4.27-6.07)
[2023-05-28 11:51] LABS: CALCIUM 9.7 mg/dL (8.5-10.3); CREATININE 0.9 mg/dL (0.6-1.3); POTASSIUM 4.2 mmol/L (3.5-4.5)
[2023-05-28 12:23] LABS: THYROID STIMULATING HORMONE 2.78 uIU/mL (0.34-5.60)
== END 2023-05-28 10:37 | disposition home or self-care (01) ==
LOC: LAB 10:36
PROVIDERS: ATTEND Registered Nurse
DX: R73.03 Prediabetes (principal); E03.9 Hypothyroidism, unspecified
CPT/HCPCS: 36415; 80048; 83036; 84443

== ENCOUNTER 2023-10-26 09:59 | Outpatient (CLI) | payer OTHER ==
[2023-10-26 14:53] LABS: BASOPHILS # (AUTO) 0.1 10^3/uL (0.0-0.1); BASOPHILS % (AUTO) 0.7 %; EOSINOPHILS # (AUTO) 0.2 10^3/uL (0.0-0.7); EOSINOPHILS % (AUTO) 2.8 %; HCT - HEMATOCRIT 42.6 % (37.0-47.0); HGB - HEMOGLOBIN 13.1 g/dL (12.0-16.0); MEAN CORPUSCULAR HEMOGLOBIN 30.3 pg (27.0-31.0); MEAN CORPUSCULAR HGB CONC 30.8 g/dL (32.0-36.0); MEAN CORPUSCULAR VOLUME 98.4 fL (81.0-99.0); MEAN PLATELET VOLUME 10.7 fL (7.9-10.8); MONOCYTES # (AUTO) 0.9 10^3/uL (0.0-1.0); MONOCYTES % (AUTO) 10.2 %; NEUTROPHILS # (AUTO) 4.4 10^3/uL (1.5-6.6); PLT - PLATELET COUNT 243 10^3/uL (130-450); RED BLOOD COUNT 4.33 10^6/uL (4.20-5.40); RED CELL DISTRIBUTION WIDTH 13.4 % (12.0-15.0); WHITE BLOOD COUNT 8.7 x10^3/uL (4.8-10.8)
[2023-10-26 16:04] LABS: THYROID STIMULATING HORMONE 4.79 uIU/mL (0.34-5.60)
[2023-10-26 16:24] LABS: ALBUMIN/GLOBULIN RATIO 1.3 (1.0-2.2); ALKALINE PHOSPHATASE 57 IU/L (42-121); ALT ALANINE AMINOTRANSFERASE 15 IU/L (10-60); AST ASPARTATE AMINOTRANSFERASE 13 IU/L (10-42); BILIRUBIN,TOTAL 0.4 mg/dL (0.2-1.0); BUN - BLOOD UREA NITROGEN 28 mg/dL (6-20); CALCIUM 9.5 mg/dL (8.5-10.3); CARBON DIOXIDE - CO2 30 mmol/L (21-32); CHLORIDE 106 mmol/L (101-111); CHOL/HDL RATIO 3.8 (<4.4); CHOLESTEROL 204 mg/dL; CREATININE 0.7 mg/dL (0.6-1.3); GFR - MDRD 83 (>89); GLUCOSE 81 mg/dL (74-104); HDL CHOLESTEROL 53 mg/dL; LDL CHOLESTEROL,CALCULATED 130 mg/dL; LDL/HDL RATIO 2.5 (<4.4); POTASSIUM 4.3 mmol/L (3.5-4.5); SODIUM 141 mmol/L (135-145); TRIGLYCERIDES 107 mg/dL (48-352); VLDL CHOLESTEROL 21 mg/dL
[2023-10-26 17:18] LABS: CREATININE,URINE 122.7 mg/dL; MICROALBUM/CREATININE RATIO,UR 8.1 ug/mg (<30.0)
[2023-10-26 20:13] LABS: ESTIMATED AVERAGE GLUCOSE 114 mg/dL (70-100); HEMOGLOBIN A1c% 5.6 % (4.27-6.07)
== END 2023-10-26 10:00 | disposition home or self-care (01) ==
LOC: LAB.S 09:59
PROVIDERS: ATTEND Registered Nurse
DX: Z01.818 Encounter for other preprocedural examination (principal); E11.9 Type 2 diabetes mellitus without complications; Z13.228 Encounter for screening for other metabolic disorders; Z13.220 Encounter for screening for lipoid disorders; Z13.0 Encounter for screening for diseases of the blood and blood-forming organs and certain disorders involving the immune mechanism; Z13.29 Encounter for screening for other suspected endocrine disorder
CPT/HCPCS: 36415; 80053; 80061; 82043; 82570; 83036; 83721; 84443; 85025